=== PATIENT | female | born 1985 | race Caucasian/White ===

== ENCOUNTER 2021-04-08 18:55 | Inpatient (IN) | payer BC ==
[~2021-04-08] VITALS: Ht 157.5 cm; Wt 66.2 kg
[~2021-04-08 18:55] MED LIST: ALBUTEROL0.09 MG/A1 IH; ALLEGRA180 MG PO; BCP TD; LEVOTHYROXINE PO; PHENERGAN W/CO120 ML PO; PRENATAL1 TA1 PO; SYNTHROID PO; TESSALON PERLE200 MG PO; VENTOLIN0.09 MG IH; VERAMIST; VERAMYST27.5 MCG/A; ZYRTEC 10MG10 MG PO
[2021-04-08 20:19] LABS: BASO % 0.2 % (0.0-2.0); GRAN # 3.3 (1.4-6.5); HEMATOCRIT 40.7 % (37.0-47.0); HEMOGLOBIN 13.7 g/dl (12.5-16.0); LYMPH # 1.1 (1.2-3.4); LYMPH % 22.5 % (20.0-51.0); MEAN CELL VOLUME 95 fl (80.0-100.0); MEAN CORPUSCULAR HEMOGLOBIN 32 pg (27.0-31.0); MEAN CORPUSCULAR HGB CONC 34 g/dl (33.0-37.0); MONO # 0.5 (0.1-0.6); MONO % 10.3 % (1.7-9.3); PLATELET COUNT 164 K/mm3 (130-400); RED BLOOD COUNT 4.28 M/mm3 (4.10-5.30); REDCELL DISTRIBUTION WIDTH-CV 12.7 % (11.5-14.5)
[2021-04-08 20:32] LABS: ALBUMIN 3.5 gm/dL (3.5-5.0); BILIRUBIN,TOTAL 0.6 mg/dL (0.0-1.0); CALCIUM 8.4 mg/dL (8.4-10.2); CREATININE, serum 0.62 (0.52-1.25)
[2021-04-08] MEDS ORDERED: SPRINTEC 35 MCG1 TAB PO (23:03)
[2021-04-09] VITALS (7 sets, daily range): BP systolic 92–182; BP diastolic 58–92; PULSE 64–95; TEMP 98–98.9
--- NOTE | 2021-04-09 01:24 | NUR ---
Received patient from ED at around 2400H. She is alert and oriented. She independent in the room. She is at O2 at 2lpm via NC. She denies pain. She do have some cough and informed her that we need a sputum sample. Started NS at 75ml/hr on her left forearm. Her lungs are clear. She is afebrile.
[2021-04-09 06:34] LABS: HEMATOCRIT 39.4 % (37.0-47.0); HEMOGLOBIN 13.1 g/dl (12.5-16.0); MEAN CELL VOLUME 96 fl (80.0-100.0); MEAN CORPUSCULAR HEMOGLOBIN 32 pg (27.0-31.0); MEAN CORPUSCULAR HGB CONC 33 g/dl (33.0-37.0); MEAN PLATELET VOLUME 10.4 fl (7.4-10.4); PLATELET COUNT 185 K/mm3 (130-400); RED BLOOD COUNT 4.09 M/mm3 (4.10-5.30); REDCELL DISTRIBUTION WIDTH-CV 12.7 % (11.5-14.5)
[2021-04-09 06:40] LABS: ALBUMIN 3.2 gm/dL (3.5-5.0); BILIRUBIN,TOTAL 0.4 mg/dL (0.0-1.0); CALCIUM 7.9 mg/dL (8.4-10.2); CREATININE, serum 0.56 (0.52-1.25); POTASSIUM 3.9 mmol/L (3.4-5.0); TOTAL PROTEIN 6.5 gm/dL (6.4-8.2)
[2021-04-09 07:49] LABS: BAND 12 % (0-10); LYMPHOCYTE 24 % (20.0-51.0); NEUTROPHILS 61 % (42.0-75.2); PLATELET ESTIMATE NORMAL (NORMAL)
--- NOTE | 2021-04-09 09:00 | NUR ---
Scheduled medication given. Shift assessment preformed. Patient currently requiring 2L of O2 via nasal cannula. PRN robutussin given for cough. Patient C/O SOA upon exertion. Patient denies any pain, discomfort, N/V/D. Patient Afebrile. Will continue to closely monitor. Call light in reach.
--- NOTE | 2021-04-09 09:19 | NUR ---
The patient is COVID positive. SW contacted the patient to discuss discharge plan. The patient lives in-between [facility] with her , Chandler (ph#[phone]), and their two children. He reports independence with ADLs and does not have any DME. The patient states that she was recently established with Dr. Salvador Tatum in [place] and she receives her medications from [facility]. She reports no difficulties obtaining her meds. The patient does not have a DPOA-HC. The patient plans to return home with her upon discharge. The patient is currently on 2 liters of oxygen. SW to continue to monitor. *Discharge plan: home with family*
--- NOTE | 2021-04-09 11:40 | NUR ---
Dr. Shepherd updated on patient's status.
--- NOTE | 2021-04-09 18:00 | NUR ---
Patient has had an ok day. Currently requiring 2 L via nasal cannula. Scheduled medications given. PRN tylenol given for aching pain in her neck rated a 3/10. Patient deneis any further needs at this time. Will continue to monitor. Call light in reach.
--- NOTE | 2021-04-09 23:02 | NUR ---
Shift assessment completed. Patient alert and oriented. Patient currently on oxygen 1L via NC. Patient denies SOB or dyspnea. VS stable. No fever and no signs of respiratory distress noted. Patient denies N/V or diarrhea. Non-productive cough noted. PRN Robitussin given per NOV. All scheduled meds given per NOV. Assisted patient to take shower tonight. Call light within reach. Will continue to monitor.
[2021-04-10 00:02] VITALS: BP 92/56; BP 98/56; PULSE 68; TEMP 98.2
[2021-04-10 05:33] VITALS: BP 107/67; PULSE 68; TEMP 98.1
[2021-04-10 06:42] LABS: HEMATOCRIT 37.3 % (37.0-47.0); HEMOGLOBIN 12.4 g/dl (12.5-16.0); MEAN CELL VOLUME 96 fl (80.0-100.0); MEAN CORPUSCULAR HEMOGLOBIN 32 pg (27.0-31.0); MEAN CORPUSCULAR HGB CONC 33 g/dl (33.0-37.0); MEAN PLATELET VOLUME 9.9 fl (7.4-10.4); PLATELET COUNT 237 K/mm3 (130-400); REDCELL DISTRIBUTION WIDTH-CV 12.8 % (11.5-14.5)
[2021-04-10 06:49] LABS: BILIRUBIN,TOTAL 0.4 mg/dL (0.0-1.0); CALCIUM 8.2 mg/dL (8.4-10.2); CREATININE, serum 0.53 (0.52-1.25); POTASSIUM 3.9 mmol/L (3.4-5.0); TOTAL PROTEIN 6.1 gm/dL (6.4-8.2)
--- NOTE | 2021-04-10 08:10 | NUR ---
Scheduled medications given. Shift assessment preformed. Patient currently not requiring any oxygen. Patient given robutussin for cough. Patient denies any N/V/D, and is afebrile. Patient denies any further needs at this time. Will continue to monitor. Call light in reach.
[2021-04-10 08:28] LABS: BAND 5 % (0-10); BASOPHIL 1 % (0-2); LYMPHOCYTE 16 % (20.0-51.0); NEUTROPHILS 69 % (42.0-75.2); PLATELET ESTIMATE NORMAL (NORMAL)
[2021-04-10 08:54] VITALS: BP 111/68; PULSE 74; TEMP 98.2
[2021-04-10] MEDS ORDERED: DOXYCYCLINE 10100 MG PO (10:24)
[2021-04-10] MEDS ORDERED: FLONASE NASAL S16 GM NS (10:25)
[2021-04-10] MEDS ORDERED: DECADRON6 MG PO (10:25)
[2021-04-10] MEDS ORDERED: TYLENOL 325MG325 MG PO (10:25)
[2021-04-10] MEDS ORDERED: PROAIR HFA0.09 MG/AC IH (10:26)
[2021-04-10] MEDS ORDERED: ROBITUSSIN DM 105 ML PO (10:27)
[2021-04-10 11:34] VITALS: BP 116/71; PULSE 77; TEMP 97.6
[2021-04-10] MEDS ORDERED: SYNTHROID0.05 MG/TA PO (14:07)
--- NOTE | 2021-04-10 14:31 | NUR ---
Patient meets discharge criteria. Appts. scheduled. Discharge education/instructions given. Patient denies any further questions or concerns. IV DC'd catheter intact, no signs of phlebitis. VSS.
--- NOTE | 2021-04-10 15:05 | NUR ---
Patient escorted out of building by [facility] Staff via .
== END 2021-04-10 15:00 | disposition home or self-care (01) | DRG 177 ==
LOC: COL.ER 18:55 → MEDICAL 21:53
PROVIDERS: Personal Emergency Response Attendant; Student in an Organized Health Care Education/Training Program; ADMIT Internal Medicine
PROC: XW033E5 Introduction of Remdesivir Anti-infective into Peripheral Vein, Percutaneous Approach, New Technology Group 5 (ICD-10-PCS; principal; 2021-04-09)
DX: U07.1 COVID-19 (principal); J96.01 Acute respiratory failure with hypoxia; J12.82 Pneumonia due to coronavirus disease 2019; J45.909 Unspecified asthma, uncomplicated; E03.9 Hypothyroidism, unspecified; R00.0 Tachycardia, unspecified
CPT/HCPCS: 99223-AI; 99233-AI; 99239; G0378; J1650; J1956; J2930; J7030; J7050; J8540; Q9967

== ENCOUNTER → 2021-05-08 | Outpatient (CLI) | payer BC ==
[~2021-05-08] MED LIST changes: +DECADRON6 MG PO; +DOXYCYCLINE 10100 MG PO; +FLONASE NASAL S16 GM NS; +PROAIR HFA0.09 MG/AC IH; +ROBITUSSIN DM 105 ML PO; +SPRINTEC 35 MCG1 TAB PO; +SYNTHROID0.05 MG/TA PO; +TYLENOL 325MG325 MG PO
== END ==
LOC: COL.RAD 10:53
DX: U07.1 COVID-19 (principal)